=== PATIENT | female | born 1935 | race Two or more races ===

== ENCOUNTER 2020-07-22 15:49 | Inpatient (IN) | payer OTHER ==
[~2020-07-22] VITALS: Ht 165.1 cm; Wt 103.2 kg
[2020-07-22] MEDS ORDERED: ALBUTEROL SULFATE HFA 90 MCG/PUFF 8 GM INHALER IH ONE (16:15)
[2020-07-22] MEDS ORDERED: DEXAMETHASONE SOD PHOS 4 MG/ML 5 ML VIAL IVP ONE (16:15)
[2020-07-22 16:26] LABS: ABG A-A DIFF O2 624.4 mmHg (10-20.0); ABG BASE EXCESS -0.8 mmol/L (-2.0-3.0); ABG CARBOXYHEMOGLOBIN 1.2 % (0.0-1.5); ABG HCO3 24.4 mmol/L (22.0-26.0); ABG METHEMOGLOBIN 0.3 % (0.0-1.5); ABG OXYGEN CONTENT 16.5 mL/dL (15.0-23.0); ABG OXYGEN SATURATION 91.8 % (95.0-98.0); ABG OXYHEMOGLOBIN 90.4 % (94.0-100.0); ABG PCO2 32 mmHg (35-45); ABG PH 7.477 (7.35-7.450); PO2, ARTERIAL BG 57.1 mmHg (71.0-79.0); SOURCE, BLOOD GAS ARTERIAL; TEMPERATURE, FAHRENHEIT, BG 98.6 FAHREN (96.0-98.6)
[2020-07-22 16:27] LABS: O2 DEVICE,BLOOD GAS NONREBREATHER (ROOM AIR); SITE, BLOOD GAS RT RADIAL
[2020-07-22] MEDS ORDERED: CefTRIAXone 1 GM/DEXTROSE 50 ML IV ONE (16:45)
[2020-07-22] MEDS ORDERED: AZITHROMYCIN 500 MG/NS 250 ML IV ONE (16:45)
[2020-07-22] MEDS ORDERED: ACETAMINOPHEN 1000 MG/ISO-OSM 100 ML IV ONE (16:45)
[2020-07-22 17:02] LABS: HEMOGLOBIN 12.3 g/dL (12.0-16.0); MEAN CORPUSCULAR HGB CONC 32.1 G/dL (31.0-37.0); RED CELL DISTRIBUTION WIDTH 13.8 % (11.5-14.5)
[2020-07-22 17:11] LABS: HEMATOCRIT 38.5 % (36-46); MEAN CORPUSCULAR HEMOGLOBIN 27.5 pg (26.0-34.0); MEAN CORPUSCULAR VOLUME 86 fL (80-100); PLATELET COUNT (AUTO) 289 K/uL (150-450); RED BLOOD CELL COUNT(AUTO) 4.48 MIL/uL (4.00-5.20)
[2020-07-22 17:12] LABS: CALCIUM, TOTAL 8.3 mg/dL (8.8-10.5); CREATININE 1.1 mg/dL (0.60-1.30); POTASSIUM 4.3 mmol/L (3.5-5.1)
[2020-07-22 17:32] LABS: ALBUMIN 2.4 g/dL (3.4-5.0); BILIRUBIN,TOTAL 0.3 mg/dL (0.1-1.0); C-REACTIVE PROTEIN QUANT 18.47 mg/dL (0.00-0.30); TOTAL PROTEIN, SERUM 6.7 g/dL (6.4-8.2)
[2020-07-22 17:38] LABS: INFLUENZA TYPE A NEGATIVE FOR TYPE A (NEGATIVE); INFLUENZA TYPE B NEGATIVE FOR TYPE B (NEGATIVE)
[2020-07-22] MEDS ORDERED: ACETAMINOPHEN 325 MG TABLET PO PRN (17:45)
[2020-07-22] MEDS ORDERED: 0.9% SODIUM CHLORIDE 10 ML SYRINGE IVP PRN (17:45)
[2020-07-22 17:50] LABS: D-DIMER 7.2 mg/L FEU (0.00-0.50); INR 1.2 (0.9-1.1); PROTHROMBIN TIME 12.3 SEC (9.4-11.6)
[2020-07-22 18:52] LABS: BAND NEUTROPHILS % (MANUAL) 7 % (0-5); LYMPHOCYTES % (MANUAL) 3 % (22-44); MONOCYTES % (MANUAL) 3 % (2-9); MYELOCYTES % 1 % (0-0); SEGMENTED NEUTROPHILS % 86 % (40-70)
[2020-07-22] MEDS ORDERED: SODIUM CHLORIDE 0.9% 100 ML ONE (19:31)
[2020-07-22] MEDS ORDERED: IOVERSOL 320 MG/ML 100 ML VIAL ONE (19:31)
[2020-07-22] MEDS ORDERED: REMDESIVIR 200 MG in SODIUM CHLORIDE 0.9% 250 ML IV ONE (22:00)
[2020-07-23 07:45] LABS: ABG BASE EXCESS 2.3 mmol/L (-2.0-3.0); ABG CARBOXYHEMOGLOBIN 0.3 % (0.0-1.5); ABG HCO3 26.4 mmol/L (22.0-26.0); ABG METHEMOGLOBIN 0.1 % (0.0-1.5); ABG OXYGEN CONTENT 16.7 mL/dL (15.0-23.0); ABG OXYGEN SATURATION 89.2 % (95.0-98.0); ABG OXYHEMOGLOBIN 88.8 % (94.0-100.0); ABG PCO2 37 mmHg (35-45); ABG PH 7.468 (7.35-7.450); ABG TOTAL HEMOGLOBIN 13.4 G/dL (12.0-18.0); PO2, ARTERIAL BG 54.3 mmHg (71.0-79.0); SOURCE, BLOOD GAS ARTERIAL; TEMPERATURE, FAHRENHEIT, BG 98.6 FAHREN (96.0-98.6)
[2020-07-23 07:46] LABS: O2 DEVICE,BLOOD GAS HI FL CANNULA (ROOM AIR); SITE, BLOOD GAS LFT RADIAL
[2020-07-23 09:10] VITALS: BP 138/85
[2020-07-23 11:20] LABS: HEMOGLOBIN 12.5 g/dL (12.0-16.0); MEAN CORPUSCULAR HEMOGLOBIN 27.5 pg (26.0-34.0); MEAN CORPUSCULAR HGB CONC 32.1 G/dL (31.0-37.0); MEAN CORPUSCULAR VOLUME 86 fL (80-100); PLATELET COUNT (AUTO) 285 K/uL (150-450); RED BLOOD CELL COUNT(AUTO) 4.56 MIL/uL (4.00-5.20)
[2020-07-23 11:24] LABS: BAND NEUTROPHILS % (MANUAL) 6 % (0-5); LYMPHOCYTES % (MANUAL) 4 % (22-44); METAMYELOCYTES % 1 % (0-0); MONOCYTES % (MANUAL) 4 % (2-9); SEGMENTED NEUTROPHILS % 85 % (40-70)
[2020-07-23] MEDS: DEXAMETHASONE SOD PHOS 4 MG/ML VIAL IVP SCH (11:35)
[2020-07-23 11:38] LABS: ALANINE AMINOTRANSFERASE 19 U/L (12-78); ALBUMIN 2.4 g/dL (3.4-5.0); ALKALINE PHOSPHATASE 96 U/L (46-116); ANION GAP 9 mmol/L (8-16); ASPARTATE AMINOTRANSFERASE 28 U/L (15-37); BILIRUBIN,TOTAL 0.4 mg/dL (0.1-1.0); CALCIUM, TOTAL 8.3 mg/dL (8.8-10.5); CARBON DIOXIDE 26 mmol/L (22-29); CHLORIDE 111 mmol/L (98-107); CREATININE 0.84 mg/dL (0.60-1.30); GLUCOSE,RANDOM 116 mg/dL (70-110); POTASSIUM 3.9 mmol/L (3.5-5.1); SODIUM SERUM 146 mmol/L (136-145); TOTAL PROTEIN, SERUM 6.6 g/dL (6.4-8.2); UREA NITROGEN, BLOOD 33 mg/dL (7-18)
[2020-07-23 11:39] LABS: GLOMERULAR FILTR. RATE CALC > 60 mL/min (>60)
[2020-07-23 11:55] VITALS: BP 136/78
[2020-07-23] MEDS ORDERED: ROSU10TA22 PO (13:22)
[2020-07-23] MEDS ORDERED: METO25 PO (13:22)
[2020-07-23] MEDS ORDERED: PNEUMOCOCCAL VACCINE POLYVALENT 0.5 ML VIAL [PPSV23] IM ONE (13:45)
[2020-07-23 16:25] VITALS: BP 126/82
[2020-07-23] MEDS: DAPTOMYCIN 400 MG in SODIUM CHLORIDE 0.9% 50 ML IV SCH (19:54)
[2020-07-23] MEDS: CHOLECALCIFEROL (VIT D3) 1,000 UNITS [25 MCG] TABLET PO SCH (19:56)
[2020-07-23] MEDS: ZINC SULFATE 220 MG CAPSULE PO SCH (19:56)
[2020-07-23] MEDS: FAMOTIDINE 20 MG TABLET PO SCH (19:56)
[2020-07-23] MEDS: APIXABAN 5 MG TABLET PO SCH (19:56)
[2020-07-23] MEDS: METOPROLOL TARTRATE 25 MG TABLET PO SCH (19:56)
[2020-07-23] MEDS: ROSUVASTATIN CALCIUM 10 MG TABLET PO SCH (19:57)
[2020-07-23] MEDS: ASCORBIC ACID 500 MG TABLET PO SCH (19:58)
[2020-07-23 20:17] VITALS: BP 149/95
[2020-07-23] MEDS: REMDESIVIR 100 MG in SODIUM CHLORIDE 0.9% 250 ML IV SCH (21:11)
[2020-07-24 00:20] VITALS: BP 138/97
[2020-07-24 05:05] VITALS: BP 150/93
[2020-07-24 07:30] LABS: ALANINE AMINOTRANSFERASE 14 U/L (12-78); ALBUMIN 2.2 g/dL (3.4-5.0); ALKALINE PHOSPHATASE 94 U/L (46-116); ANION GAP 8 mmol/L (8-16); ASPARTATE AMINOTRANSFERASE 24 U/L (15-37); BILIRUBIN,TOTAL 0.3 mg/dL (0.1-1.0); C-REACTIVE PROTEIN QUANT 9.05 mg/dL (0.00-0.30); CALCIUM, TOTAL 8.5 mg/dL (8.8-10.5); CARBON DIOXIDE 25 mmol/L (22-29); CHLORIDE 113 mmol/L (98-107); CREATINE KINASE, TOTAL ONLY 31 U/L (26-192); CREATININE 0.84 mg/dL (0.60-1.30); FERRITIN 403 ng/mL (8-252); GLUCOSE,RANDOM 111 mg/dL (70-110); POTASSIUM 4.1 mmol/L (3.5-5.1); SODIUM SERUM 146 mmol/L (136-145); TOTAL PROTEIN, SERUM 6.1 g/dL (6.4-8.2); UREA NITROGEN, BLOOD 44 mg/dL (7-18)
[2020-07-24 07:31] LABS: GLOMERULAR FILTR. RATE CALC > 60 mL/min (>60)
[2020-07-24] MEDS: ZINC SULFATE 220 MG CAPSULE PO SCH (07:37)
[2020-07-24] MEDS: APIXABAN 5 MG TABLET PO SCH ×2 (07:37→20:23)
[2020-07-24] MEDS: ASCORBIC ACID 500 MG TABLET PO SCH (07:37)
[2020-07-24] MEDS: DEXAMETHASONE SOD PHOS 4 MG/ML VIAL IVP SCH (07:37)
[2020-07-24] MEDS: CHOLECALCIFEROL (VIT D3) 1,000 UNITS [25 MCG] TABLET PO SCH (07:37)
[2020-07-24] MEDS: FAMOTIDINE 20 MG TABLET PO SCH (07:37)
[2020-07-24] MEDS: METOPROLOL TARTRATE 25 MG TABLET PO SCH ×2 (07:37→20:23)
[2020-07-24 07:53] VITALS: BP 161/98
[2020-07-24 11:25] VITALS: BP 139/92
[2020-07-24] MEDS ORDERED: AZITHROMYCIN 500 MG/NS 250 ML IV SCH (12:15)
[2020-07-24] MEDS ORDERED: CefTRIAXone SODIUM 2 GM in DEXTROSE 5%-WATER 50 ML IV SCH (12:15)
[2020-07-24 16:22] VITALS: BP 141/96
[2020-07-24 20:15] VITALS: BP 155/93
[2020-07-24] MEDS: ROSUVASTATIN CALCIUM 10 MG TABLET PO SCH (20:23)
[2020-07-24] MEDS: DAPTOMYCIN 400 MG in SODIUM CHLORIDE 0.9% 50 ML IV SCH (20:23)
[2020-07-24] MEDS: REMDESIVIR 100 MG in SODIUM CHLORIDE 0.9% 250 ML IV SCH (21:26)
[2020-07-25] VITALS (9 sets, daily range): BP systolic 114–158; BP diastolic 43–91
[2020-07-25] MEDS ORDERED: LORazepam 2 MG/ML VIAL IVP ONE ×2 (01:30→08:30)
[2020-07-25 06:11] LABS: HEMATOCRIT 36.3 % (36-46); MEAN CORPUSCULAR HEMOGLOBIN 28.1 pg (26.0-34.0); MEAN CORPUSCULAR VOLUME 85 fL (80-100); PLATELET COUNT (AUTO) 287 K/uL (150-450); RED BLOOD CELL COUNT(AUTO) 4.26 MIL/uL (4.00-5.20); RED CELL DISTRIBUTION WIDTH 13.7 % (11.5-14.5)
[2020-07-25 06:42] LABS: ALBUMIN 2.3 g/dL (3.4-5.0); BILIRUBIN,TOTAL 0.4 mg/dL (0.1-1.0); C-REACTIVE PROTEIN QUANT 6.93 mg/dL (0.00-0.30); CALCIUM, TOTAL 8.4 mg/dL (8.8-10.5); CREATININE 0.97 mg/dL (0.60-1.30); POTASSIUM 4.2 mmol/L (3.5-5.1); TOTAL PROTEIN, SERUM 6.1 g/dL (6.4-8.2)
[2020-07-25 07:42] LABS: BAND NEUTROPHILS % (MANUAL) 4 % (0-5); LYMPHOCYTES % (MANUAL) 19 % (22-44); METAMYELOCYTES % 3 % (0-0); MONOCYTES % (MANUAL) 1 % (2-9); SEGMENTED NEUTROPHILS % 73 % (40-70)
[2020-07-25] MEDS: DEXAMETHASONE SOD PHOS 4 MG/ML VIAL IVP SCH (08:52)
[2020-07-25] MEDS: APIXABAN 5 MG TABLET PO SCH ×2 (09:00→20:38)
[2020-07-25] MEDS: ASCORBIC ACID 500 MG TABLET PO SCH (09:00)
[2020-07-25] MEDS: METOPROLOL TARTRATE 25 MG TABLET PO SCH ×2 (09:00→20:38)
[2020-07-25] MEDS: FAMOTIDINE 20 MG TABLET PO SCH (09:00)
[2020-07-25] MEDS: ZINC SULFATE 220 MG CAPSULE PO SCH (09:00)
[2020-07-25] MEDS: CHOLECALCIFEROL (VIT D3) 1,000 UNITS [25 MCG] TABLET PO SCH (09:00)
[2020-07-25] MEDS: DAPTOMYCIN 400 MG in SODIUM CHLORIDE 0.9% 50 ML IV SCH (18:21)
[2020-07-25] MEDS: FAMOTIDINE 10 MG/ML 2 ML VIAL IVP SCH (20:37)
[2020-07-25] MEDS: REMDESIVIR 100 MG in SODIUM CHLORIDE 0.9% 250 ML IV SCH (20:37)
[2020-07-25] MEDS: ROSUVASTATIN CALCIUM 10 MG TABLET PO SCH (20:38)
[2020-07-25] MEDS ORDERED: SODIUM CHLORIDE 0.9% 250 ML IV ONE (22:02)
[2020-07-25] MEDS ORDERED: ACETAMINOPHEN 325 MG TABLET PO PRN (22:15)
[2020-07-26] VITALS (10 sets, daily range): BP systolic 141–164; BP diastolic 82–111
[2020-07-26] MEDS ORDERED: ACETAMINOPHEN 650 MG RECTAL SUPPOSITORY PR PRN (05:15)
[2020-07-26 06:53] LABS: GLUCOMETER DEV NAME(LOC) 5N.3; GLUCOSE,POINT OF CARE 142 MG/DL (70-110)
[2020-07-26 06:55] LABS: ALBUMIN 2.5 g/dL (3.4-5.0); BILIRUBIN,TOTAL 0.6 mg/dL (0.1-1.0); C-REACTIVE PROTEIN QUANT 16.75 mg/dL (0.00-0.30); CALCIUM, TOTAL 8.9 mg/dL (8.8-10.5); CREATININE 0.91 mg/dL (0.60-1.30); POTASSIUM 4.2 mmol/L (3.5-5.1); TOTAL PROTEIN, SERUM 6.4 g/dL (6.4-8.2)
[2020-07-26] MEDS: DEXAMETHASONE SOD PHOS 4 MG/ML VIAL IVP SCH (08:52)
[2020-07-26] MEDS: ASCORBIC ACID 500 MG TABLET PO SCH (08:53)
[2020-07-26] MEDS: FAMOTIDINE 10 MG/ML 2 ML VIAL IVP SCH ×2 (08:53→20:13)
[2020-07-26] MEDS: CHOLECALCIFEROL (VIT D3) 1,000 UNITS [25 MCG] TABLET PO SCH (08:53)
[2020-07-26] MEDS: ZINC SULFATE 220 MG CAPSULE PO SCH (08:53)
[2020-07-26] MEDS: APIXABAN 5 MG TABLET PO SCH ×2 (08:53→20:02)
[2020-07-26] MEDS: METOPROLOL TARTRATE 25 MG TABLET PO SCH ×2 (09:24→20:02)
[2020-07-26] MEDS: SODIUM CHLORIDE 0.45% 1,000 ML IV SCH ×2 (12:56→21:16)
[2020-07-26] MEDS: CefTRIAXone 1 GM/DEXTROSE 50 ML IV SCH (14:55)
[2020-07-26] MEDS: AZITHROMYCIN 500 MG/NS 250 ML IV SCH (16:35)
[2020-07-26] MEDS: DAPTOMYCIN 400 MG in SODIUM CHLORIDE 0.9% 50 ML IV SCH (19:33)
[2020-07-26] MEDS: ROSUVASTATIN CALCIUM 10 MG TABLET PO SCH (20:02)
[2020-07-26] MEDS: REMDESIVIR 100 MG in SODIUM CHLORIDE 0.9% 250 ML IV SCH (21:15)
[2020-07-26 22:58] LABS: ABG A-A DIFF O2 632.3 mmHg (10-20.0); ABG BASE EXCESS -0.6 mmol/L (-2.0-3.0); ABG CARBOXYHEMOGLOBIN 0.7 % (0.0-1.5); ABG HCO3 24.3 mmol/L (22.0-26.0); ABG METHEMOGLOBIN 0.3 % (0.0-1.5); ABG OXYGEN CONTENT 15.9 mL/dL (15.0-23.0); ABG OXYGEN SATURATION 86.1 % (95.0-98.0); ABG OXYHEMOGLOBIN 85.2 % (94.0-100.0); ABG PCO2 33 mmHg (35-45); ABG PH 7.467 (7.35-7.450); ABG TOTAL HEMOGLOBIN 13.3 G/dL (12.0-18.0); PO2, ARTERIAL BG 48.5 mmHg (71.0-79.0); SITE, BLOOD GAS RT RADIAL; SOURCE, BLOOD GAS ARTERIAL; TEMPERATURE, FAHRENHEIT, BG 98.2 FAHREN (96.0-98.6)
[2020-07-26 22:59] LABS: O2 DEVICE,BLOOD GAS HFNC (ROOM AIR)
[2020-07-26] MEDS ORDERED: HALOPERIDOL LACTATE 5 MG/ML VIAL IVP ONE (23:00)
[2020-07-26] MEDS ORDERED: SODIUM CHLORIDE 0.9% 500 ML IV ONE (23:15)
[2020-07-26] MEDS ORDERED: PROPOFOL 1000 MG/ISO-OSM 100 ML IV ONE (23:29)
[2020-07-27] VITALS (8 sets, daily range): BP systolic 57–142; BP diastolic 40–83
[2020-07-27] MEDS ORDERED: NOREPINEPHRINE 4 MG/D5%-WATER 250 ML IV ONE (00:04)
[2020-07-27] MEDS: PROPOFOL 1000 MG/ISO-OSM 100 ML IV PRN ×4 (00:10→15:16)
[2020-07-27] MEDS ORDERED: FentaNYL CITRATE-PF 100 MCG/2 ML VIAL IVP ONE (00:45)
[2020-07-27 01:41] LABS: ABG A-A DIFF O2 595.7 mmHg (10-20.0); ABG BASE EXCESS -4.8 mmol/L (-2.0-3.0); ABG CARBOXYHEMOGLOBIN 0.5 % (0.0-1.5); ABG METHEMOGLOBIN 0.3 % (0.0-1.5); ABG OXYGEN CONTENT 15.5 mL/dL (15.0-23.0); ABG OXYHEMOGLOBIN 87.3 % (94.0-100.0); ABG PCO2 53 mmHg (35-45); ABG PH 7.247 (7.35-7.450); ABG TOTAL HEMOGLOBIN 12.6 G/dL (12.0-18.0); PO2, ARTERIAL BG 64.5 mmHg (71.0-79.0); SITE, BLOOD GAS LFT RADIAL; SOURCE, BLOOD GAS ARTERIAL; TEMPERATURE, FAHRENHEIT, BG 98.6 FAHREN (96.0-98.6)
[2020-07-27 01:42] LABS: O2 DEVICE,BLOOD GAS VENTILATOR (ROOM AIR); PEEP,BG 5 cm H2O; VENT MODE, BG Press. Control Vent (ROOM AIR)
[2020-07-27 05:57] LABS: HEMATOCRIT 33.1 % (36-46); HEMOGLOBIN 10.6 g/dL (12.0-16.0); MEAN CORPUSCULAR HEMOGLOBIN 27.4 pg (26.0-34.0); MEAN CORPUSCULAR HGB CONC 31.9 G/dL (31.0-37.0); MEAN CORPUSCULAR VOLUME 86 fL (80-100); PLATELET COUNT (AUTO) 220 K/uL (150-450); RED BLOOD CELL COUNT(AUTO) 3.85 MIL/uL (4.00-5.20); RED CELL DISTRIBUTION WIDTH 14.5 % (11.5-14.5)
[2020-07-27 06:21] LABS: ALBUMIN 1.9 g/dL (3.4-5.0); BILIRUBIN,TOTAL 0.4 mg/dL (0.1-1.0); C-REACTIVE PROTEIN QUANT 18.45 mg/dL (0.00-0.30); CALCIUM, TOTAL 7.4 mg/dL (8.8-10.5); CREATININE 0.91 mg/dL (0.60-1.30); POTASSIUM 4.5 mmol/L (3.5-5.1); TOTAL PROTEIN, SERUM 5.3 g/dL (6.4-8.2)
[2020-07-27 08:02] LABS: BAND NEUTROPHILS % (MANUAL) 0 % (0-5)
[2020-07-27] MEDS: METOPROLOL TARTRATE 25 MG TABLET PO SCH ×2 (09:00→21:00)
[2020-07-27] MEDS: ZINC SULFATE 220 MG CAPSULE PO SCH (09:20)
[2020-07-27] MEDS: APIXABAN 5 MG TABLET PO SCH ×2 (09:20→20:47)
[2020-07-27] MEDS: ASCORBIC ACID 500 MG TABLET PO SCH (09:20)
[2020-07-27] MEDS: CHOLECALCIFEROL (VIT D3) 1,000 UNITS [25 MCG] TABLET PO SCH (09:20)
[2020-07-27] MEDS: FAMOTIDINE 10 MG/ML 2 ML VIAL IVP SCH ×2 (09:21→21:17)
[2020-07-27] MEDS: DEXAMETHASONE SOD PHOS 4 MG/ML VIAL IVP SCH (09:21)
[2020-07-27] MEDS: SODIUM CHLORIDE 0.45% 1,000 ML IV SCH (10:20)
[2020-07-27 11:24] LABS: LYMPHOCYTES % (MANUAL) 4 % (22-44); METAMYELOCYTES % 3 % (0-0); MONOCYTES % (MANUAL) 5 % (2-9); MYELOCYTES % 1 % (0-0); SEGMENTED NEUTROPHILS % 87 % (40-70)
[2020-07-27] MEDS: CefTRIAXone 1 GM/DEXTROSE 50 ML IV SCH (13:06)
[2020-07-27] MEDS: AZITHROMYCIN 500 MG/NS 250 ML IV SCH (13:08)
[2020-07-27 15:47] LABS: ABG A-A DIFF O2 442.8 mmHg (10-20.0); ABG BASE EXCESS -3.7 mmol/L (-2.0-3.0); ABG CARBOXYHEMOGLOBIN 0.4 % (0.0-1.5); ABG METHEMOGLOBIN 0.3 % (0.0-1.5); ABG OXYGEN CONTENT 15.2 mL/dL (15.0-23.0); ABG OXYGEN SATURATION 91.1 % (95.0-98.0); ABG OXYHEMOGLOBIN 90.5 % (94.0-100.0); ABG PCO2 54 mmHg (35-45); ABG PH 7.256 (7.35-7.450); ABG TOTAL HEMOGLOBIN 11.9 G/dL (12.0-18.0); PO2, ARTERIAL BG 69.4 mmHg (71.0-79.0); SITE, BLOOD GAS LFT RADIAL; SOURCE, BLOOD GAS ARTERIAL; TEMPERATURE, FAHRENHEIT, BG 99.9 FAHREN (96.0-98.6)
[2020-07-27 15:48] LABS: O2 DEVICE,BLOOD GAS VENTILATOR (ROOM AIR); VENT MODE, BG Press. Control Vent (ROOM AIR); VT, ABG 450 ml
[2020-07-27 15:49] LABS: PEEP,BG 8 cm H2O
[2020-07-27 15:51] LABS: INSPIRATORY TIME, BG 1 SEC
[2020-07-27] MEDS: ACETYLCYSTEINE 10% 100 MG/ML 4 ML NEB SOLUTION NEB SCH ×2 (16:04→20:31)
[2020-07-27] MEDS: ALBUTEROL SULFATE 2.5 MG/0.5 ML NEB SOLUTION NEB SCH ×2 (16:04→20:31)
[2020-07-27 19:14] LABS: APPEARANCE,URINE CLOUDY (CLEAR); BILIRUBIN,URINE NEGATIVE (NEGATIVE); GLUCOSE, URINE (UA) NEGATIVE (NEGATIVE); KETONES,URINE NEGATIVE (NEGATIVE); LEUKOCYTE ESTERASE ,URINE NEGATIVE (NEGATIVE); NITRATE,URINE NEGATIVE (NEGATIVE); OCCULT BLOOD,URINE NEGATIVE (NEGATIVE); PH,URINE 5.5 (5.0-8.0); PROTEIN,URINE POS 1+ (NEGATIVE); UROBILINOGEN,URINE 0.2 mg/dL (<=1.0)
[2020-07-27] MEDS: DAPTOMYCIN 400 MG in SODIUM CHLORIDE 0.9% 50 ML IV SCH (20:00)
[2020-07-27] MEDS: ROSUVASTATIN CALCIUM 10 MG TABLET PO SCH (21:00)
[2020-07-27] MEDS: DEXMEDETOMIDINE HCL 200 MCG in SODIUM CHLORIDE 0.9% 48 ML IV PRN (23:21)
[2020-07-28] VITALS: BP 136/91
[2020-07-28] MEDS: PROPOFOL 1000 MG/ISO-OSM 100 ML IV PRN ×3 (00:16→13:07)
[2020-07-28] MEDS: SODIUM CHLORIDE 0.45% 1,000 ML IV SCH ×2 (00:30→16:21)
[2020-07-28] MEDS: ACETYLCYSTEINE 10% 100 MG/ML 4 ML NEB SOLUTION NEB SCH ×4 (03:30→22:21)
[2020-07-28] MEDS: ALBUTEROL SULFATE 2.5 MG/0.5 ML NEB SOLUTION NEB SCH ×4 (03:30→22:20)
[2020-07-28 04:00] VITALS: BP 119/75
[2020-07-28 06:09] LABS: BASOPHILS % (AUTO) 0.1 % (0.0-2.0); EOSINOPHILS % (AUTO) 0 % (1.0-6.0); HEMATOCRIT 32.7 % (36-46); HEMOGLOBIN 10.5 g/dL (12.0-16.0); LYMPHOCYTES # (AUTO) 0.3 K/uL (1.0-4.8); LYMPHOCYTES % (AUTO) 1.5 % (22.0-44.0); MEAN CORPUSCULAR HEMOGLOBIN 27.7 pg (26.0-34.0); MEAN CORPUSCULAR VOLUME 86 fL (80-100); MONOCYTES # (AUTO) 0.4 K/uL (0.1-1.0); NEUTROPHILS # (AUTO) 17.3 K/uL (1.8-7.7); PLATELET COUNT (AUTO) 215 K/uL (150-450); RED BLOOD CELL COUNT(AUTO) 3.79 MIL/uL (4.00-5.20); RED CELL DISTRIBUTION WIDTH 14.3 % (11.5-14.5)
[2020-07-28 06:28] LABS: ALANINE AMINOTRANSFERASE 26 U/L (12-78); ALBUMIN 1.8 g/dL (3.4-5.0); ALKALINE PHOSPHATASE 115 U/L (46-116); ANION GAP 5 mmol/L (8-16); ASPARTATE AMINOTRANSFERASE 41 U/L (15-37); BILIRUBIN,TOTAL 0.4 mg/dL (0.1-1.0); C-REACTIVE PROTEIN QUANT 14.33 mg/dL (0.00-0.30); CALCIUM, TOTAL 7.3 mg/dL (8.8-10.5); CARBON DIOXIDE 26 mmol/L (22-29); CHLORIDE 108 mmol/L (98-107); CREATININE 0.84 mg/dL (0.60-1.30); GLUCOSE,RANDOM 133 mg/dL (70-110); POTASSIUM 4.5 mmol/L (3.5-5.1); SODIUM SERUM 139 mmol/L (136-145); TOTAL PROTEIN, SERUM 5.5 g/dL (6.4-8.2); UREA NITROGEN, BLOOD 28 mg/dL (7-18)
[2020-07-28 06:31] LABS: NEUTROPHILS % (AUTO) 96.4 % (40.0-70.0)
[2020-07-28 06:35] LABS: GLOMERULAR FILTR. RATE CALC > 60 mL/min (>60)
[2020-07-28 08:00] VITALS: BP 122/75
[2020-07-28] MEDS: DEXAMETHASONE SOD PHOS 4 MG/ML VIAL IVP SCH (08:08)
[2020-07-28] MEDS: ASCORBIC ACID 500 MG TABLET PO SCH (08:08)
[2020-07-28] MEDS: ZINC SULFATE 220 MG CAPSULE PO SCH (08:08)
[2020-07-28] MEDS: APIXABAN 5 MG TABLET PO SCH ×2 (08:08→23:55)
[2020-07-28] MEDS: CHOLECALCIFEROL (VIT D3) 1,000 UNITS [25 MCG] TABLET PO SCH (08:08)
[2020-07-28] MEDS: FAMOTIDINE 10 MG/ML 2 ML VIAL IVP SCH ×2 (08:09→21:00)
[2020-07-28] MEDS: METOPROLOL TARTRATE 25 MG TABLET PO SCH ×2 (08:15→21:00)
[2020-07-28] MEDS: DEXMEDETOMIDINE HCL 200 MCG in SODIUM CHLORIDE 0.9% 48 ML IV PRN (08:15)
[2020-07-28] MEDS: NOREPINEPHRINE 4 MG/D5%-WATER 250 ML IV PRN ×2 (09:10→14:54)
[2020-07-28 11:44] LABS: APPEARANCE,URINE CLEAR (CLEAR); BILIRUBIN,URINE NEGATIVE (NEGATIVE); GLUCOSE, URINE (UA) NEGATIVE (NEGATIVE); KETONES,URINE NEGATIVE (NEGATIVE); LEUKOCYTE ESTERASE ,URINE NEGATIVE (NEGATIVE); NITRATE,URINE NEGATIVE (NEGATIVE); OCCULT BLOOD,URINE NEGATIVE (NEGATIVE); PROTEIN,URINE NEGATIVE (NEGATIVE); UROBILINOGEN,URINE 0.2 mg/dL (<=1.0)
[2020-07-28 12:00] VITALS: BP 105/60
[2020-07-28] MEDS: CefTRIAXone 1 GM/DEXTROSE 50 ML IV SCH (13:06)
[2020-07-28] MEDS: FentaNYL CITRATE PF 500 MCG in DEXTROSE 5%-WATER 90 ML IV PRN ×2 (13:07→19:03)
[2020-07-28] MEDS: AZITHROMYCIN 500 MG/NS 250 ML IV SCH (14:47)
[2020-07-28 16:00] VITALS: BP 90/60
[2020-07-28] MEDS: DAPTOMYCIN 400 MG in SODIUM CHLORIDE 0.9% 50 ML IV SCH (19:37)
[2020-07-28 20:00] VITALS: BP 101/62
[2020-07-28] MEDS: ROSUVASTATIN CALCIUM 10 MG TABLET PO SCH (21:00)
[2020-07-29] VITALS (7 sets, daily range): BP systolic 66–140; BP diastolic 48–80
[2020-07-29] MEDS: FentaNYL CITRATE PF 500 MCG in DEXTROSE 5%-WATER 90 ML IV PRN ×4 (01:36→21:35)
[2020-07-29] MEDS: ACETYLCYSTEINE 10% 100 MG/ML 4 ML NEB SOLUTION NEB SCH ×4 (02:55→20:46)
[2020-07-29] MEDS: ALBUTEROL SULFATE 2.5 MG/0.5 ML NEB SOLUTION NEB SCH ×4 (02:55→20:45)
[2020-07-29] MEDS: DEXMEDETOMIDINE HCL 200 MCG in SODIUM CHLORIDE 0.9% 48 ML IV PRN ×2 (03:03→10:11)
[2020-07-29] MEDS: SODIUM CHLORIDE 0.45% 1,000 ML IV SCH (05:39)
[2020-07-29 06:31] LABS: ALBUMIN 1.7 g/dL (3.4-5.0); BILIRUBIN,TOTAL 0.2 mg/dL (0.1-1.0); CREATININE 1.6 mg/dL (0.60-1.30); POTASSIUM 4.9 mmol/L (3.5-5.1); TOTAL PROTEIN, SERUM 5.4 g/dL (6.4-8.2)
[2020-07-29 06:32] LABS: HEMATOCRIT 32.6 % (36-46); HEMOGLOBIN 10.2 g/dL (12.0-16.0); MEAN CORPUSCULAR HEMOGLOBIN 27.5 pg (26.0-34.0); MEAN CORPUSCULAR HGB CONC 31.3 G/dL (31.0-37.0); MEAN CORPUSCULAR VOLUME 88 fL (80-100); PLATELET COUNT (AUTO) 233 K/uL (150-450); RED BLOOD CELL COUNT(AUTO) 3.71 MIL/uL (4.00-5.20); RED CELL DISTRIBUTION WIDTH 14.3 % (11.5-14.5)
[2020-07-29 06:38] LABS: C-REACTIVE PROTEIN QUANT 8.11 mg/dL (0.00-0.30)
[2020-07-29] MEDS: NOREPINEPHRINE 4 MG/D5%-WATER 250 ML IV PRN ×2 (08:01→17:40)
[2020-07-29 08:08] LABS: BAND NEUTROPHILS % (MANUAL) 8 % (0-5); MONOCYTES % (MANUAL) 2 % (2-9); SEGMENTED NEUTROPHILS % 90 % (40-70)
[2020-07-29] MEDS ORDERED: AMINO ACIDS/PROTEIN HYDROLYS 30 ML TUBE PO SCH (09:00)
[2020-07-29] MEDS: METOPROLOL TARTRATE 25 MG TABLET PO SCH ×2 (10:10→20:51)
[2020-07-29] MEDS: DEXAMETHASONE SOD PHOS 4 MG/ML VIAL IVP SCH (10:10)
[2020-07-29] MEDS: ZINC SULFATE 220 MG CAPSULE PO SCH (10:10)
[2020-07-29] MEDS: ASCORBIC ACID 500 MG TABLET PO SCH (10:10)
[2020-07-29] MEDS: FAMOTIDINE 10 MG/ML 2 ML VIAL IVP SCH (10:10)
[2020-07-29] MEDS: CHOLECALCIFEROL (VIT D3) 1,000 UNITS [25 MCG] TABLET PO SCH (10:10)
[2020-07-29] MEDS: APIXABAN 5 MG TABLET PO SCH (10:10)
[2020-07-29] MEDS ORDERED: HEPARIN SODIUM,PORCINE 5,000 UNITS/ML VIAL IVP PRN ×2 (12:15)
[2020-07-29] MEDS ORDERED: HEPARIN SODIUM 25000 UNITS/D5W 250 ML IV PRN (12:15)
[2020-07-29] MEDS ORDERED: HEPARIN SODIUM,PORCINE 5,000 UNITS/ML VIAL IVP ONE (12:15)
[2020-07-29 12:49] LABS: INR 1.2 (0.9-1.1); PROTHROMBIN TIME 12.2 SEC (9.4-11.6)
[2020-07-29 12:56] LABS: ABG A-A DIFF O2 291.6 mmHg (10-20.0); ABG BASE EXCESS -5.7 mmol/L (-2.0-3.0); ABG CARBOXYHEMOGLOBIN 0.4 % (0.0-1.5); ABG HCO3 18.7 mmol/L (22.0-26.0); ABG METHEMOGLOBIN 0.3 % (0.0-1.5); ABG OXYGEN CONTENT 14.2 mL/dL (15.0-23.0); ABG OXYGEN SATURATION 86.6 % (95.0-98.0); ABG TOTAL HEMOGLOBIN 11.7 G/dL (12.0-18.0); PO2, ARTERIAL BG 53.5 mmHg (71.0-79.0); SOURCE, BLOOD GAS ARTERIAL; TEMPERATURE, FAHRENHEIT, BG 97.8 FAHREN (96.0-98.6)
[2020-07-29 12:57] LABS: ABG PCO2 76 mmHg (35-45); ABG PH 7.113 (7.35-7.450); O2 DEVICE,BLOOD GAS VENTILATOR (ROOM AIR); PEEP,BG 8 cm H2O; SITE, BLOOD GAS LFT RADIAL; VENT MODE, BG Press. Control Vent (ROOM AIR)
[2020-07-29] MEDS: CefTRIAXone 1 GM/DEXTROSE 50 ML IV SCH (13:23)
[2020-07-29] MEDS ORDERED: BISACODYL 10 MG RECTAL RECTAL SUPPOSITORY PR PRN (14:15)
[2020-07-29] MEDS ORDERED: SODIUM CHLORIDE 0.9% 1,000 ML IV SCH (14:15)
[2020-07-29] MEDS ORDERED: MAGNESIUM HYDROXIDE SUSPENSION 30 ML UDCUP PO PRN (14:15)
[2020-07-29] MEDS: AZITHROMYCIN 500 MG/NS 250 ML IV SCH (14:32)
[2020-07-29] MEDS ORDERED: 0.9% SODIUM CHLORIDE 15 ML NEB SOLUTION NEB ONE (15:32)
[2020-07-29] MEDS ORDERED: ETOMIDATE 2 MG/ML 10 ML VIAL IVP ONE (19:30)
[2020-07-29] MEDS: ROSUVASTATIN CALCIUM 10 MG TABLET PO SCH (20:51)
[2020-07-29] MEDS: PROPOFOL 1000 MG/ISO-OSM 100 ML IV PRN (20:53)
[2020-07-29 22:16] LABS: BASOPHILS % (AUTO) 0.4 % (0.0-2.0); EOSINOPHILS % (AUTO) 0 % (1.0-6.0); HEMATOCRIT 36.6 % (36-46); HEMOGLOBIN 10.7 g/dL (12.0-16.0); LYMPHOCYTES # (AUTO) 0.3 K/uL (1.0-4.8); LYMPHOCYTES % (AUTO) 1.1 % (22.0-44.0); MEAN CORPUSCULAR HEMOGLOBIN 27.3 pg (26.0-34.0); MEAN CORPUSCULAR HGB CONC 29.2 G/dL (31.0-37.0); MEAN CORPUSCULAR VOLUME 94 fL (80-100); MONOCYTES # (AUTO) 0.6 K/uL (0.1-1.0); MONOCYTES % (AUTO) 2.3 % (2.0-9.0); NEUTROPHILS # (AUTO) 24.6 K/uL (1.8-7.7); PLATELET COUNT (AUTO) 281 K/uL (150-450); RED BLOOD CELL COUNT(AUTO) 3.92 MIL/uL (4.00-5.20); RED CELL DISTRIBUTION WIDTH 15.3 % (11.5-14.5)
[2020-07-29 22:27] LABS: NEUTROPHILS % (AUTO) 96.2 % (40.0-70.0)
[2020-07-29] MEDS ORDERED: ALBUMIN HUMAN 25%-25GM/100ML 100 ML IV SCH (22:30)
[2020-07-29] MEDS ORDERED: PHENYLEPHRINE 200 MG/D5%-WATER 250 ML IV PRN (22:30)
[2020-07-29] MEDS ORDERED: VASOPRESSIN 40 UNITS in DEXTROSE 5%-WATER 98 ML IV PRN (22:30)
[2020-07-29] MEDS ORDERED: SODIUM CHLORIDE 0.9% 500 ML IV ONE (22:37)
[2020-07-30] MEDS ORDERED: PANTOPRAZOLE SODIUM 40 MG/VIAL IVP SCH (09:00)
[2020-07-30] MEDS ORDERED: DAPTOMYCIN 400 MG in SODIUM CHLORIDE 0.9% 50 ML IV SCH (19:00)
[2020-07-31] MEDS ORDERED: AMINO ACIDS/PROTEIN HYDROLYS 30 ML TUBE GT SCH (09:00)
== END 2020-07-29 23:31 | disposition expired | DRG 208 ==
LOC: EMS 15:51 → 5N 07-23 05:38 → ICU 07-26 20:30
PROVIDERS: ADMIT Hospitalist; ATTEND Hospitalist
PROC: XW033E5 Introduction of Remdesivir Anti-infective into Peripheral Vein, Percutaneous Approach, New Technology Group 5 (ICD-10-PCS; principal; 2020-07-23)
PROC: XW13325 Transfusion of Convalescent Plasma (Nonautologous) into Peripheral Vein, Percutaneous Approach, New Technology Group 5 (ICD-10-PCS; 2020-07-25)
PROC: 05HY33Z Insertion of Infusion Device into Upper Vein, Percutaneous Approach (ICD-10-PCS; 2020-07-27)
PROC: B54MZZA Ultrasonography of Right Upper Extremity Veins, Guidance (ICD-10-PCS; 2020-07-27)
PROC: 03HY32Z Insertion of Monitoring Device into Upper Artery, Percutaneous Approach (ICD-10-PCS; 2020-07-27)
PROC: 4A133B1 Monitoring of Arterial Pressure, Peripheral, Percutaneous Approach (ICD-10-PCS; 2020-07-27)
PROC: 4A133J1 Monitoring of Arterial Pulse, Peripheral, Percutaneous Approach (ICD-10-PCS; 2020-07-27)
PROC: 5A1945Z Respiratory Ventilation, 24-96 Consecutive Hours (ICD-10-PCS; 2020-07-27)
PROC: 0BH17EZ Insertion of Endotracheal Airway into Trachea, Via Natural or Artificial Opening (ICD-10-PCS; 2020-07-27)
DX: U07.1 COVID-19 (principal); A41.9 Sepsis, unspecified organism; J12.89 Other viral pneumonia; J96.01 Acute respiratory failure with hypoxia; E87.0 Hyperosmolality and hypernatremia; B96.89 Other specified bacterial agents as the cause of diseases classified elsewhere; F03.90 Unspecified dementia, unspecified severity, without behavioral disturbance, psychotic disturbance, mood disturbance, and anxiety; E78.00 Pure hypercholesterolemia, unspecified; E78.5 Hyperlipidemia, unspecified; I10 Essential (primary) hypertension; R79.89 Other specified abnormal findings of blood chemistry
CPT/HCPCS: 36600; 71275; 82728; 82805; 83605; 83615; 84145; 85379; 85384; 86140; 86850; 86900; 86901; 86927; 87040; 87070; 87077; 87081; 87205; 87426; 87804; 93005; 93971; 94002; 94003; 94640; G0378; J0131; J0456; J0696; J0878; J1100; J1644; J2060; J2370; J2704; J3010; J3490; J3535; J7030; J7040; J7050; J7060; P9046; 36415-L1; 36415-TC; 71045-TC; 81003-TC; J7613; U0003